=== PATIENT | female | born 1990 | race Caucasian/White ===

== ENCOUNTER 2019-04-06 08:30 | Inpatient (IN) | payer OTHER ==
[~2019-04-06] VITALS: Ht 149.9 cm; Wt 93.0 kg
[2019-04-06] MEDS ORDERED: RINGERS SOLUTION,LACTATED 1,000 ML IV PRN (09:24)
[2019-04-06] MEDS ORDERED: OXYTOCIN 30 UNITS/LACT RINGERS 500 ML IV ONE (09:24)
[2019-04-06] MEDS ORDERED: DINOPROSTONE 10 MG VAGINAL SUPPOSITORY VG ONE (09:30)
[2019-04-06] MEDS ORDERED: TERBUTALINE SULFATE 1 MG/ML VIAL SQ PRN (09:30)
[2019-04-06] MEDS ORDERED: METOCLOPRAMIDE HCL 5 MG/ML 2 ML VIAL IVP PRN (09:30)
[2019-04-06] MEDS ORDERED: CITRIC ACID/SODIUM CITRATE 30 ML SOLUTION UDCUP PO PRN (09:30)
[2019-04-06 10:01] LABS: BASOPHILS % (AUTO) 0.5 % (0.0-2.0); EOSINOPHILS % (AUTO) 0.1 % (1.0-6.0); HEMATOCRIT 39.8 % (36-46); HEMOGLOBIN 13.1 g/dL (12.0-16.0); LYMPHOCYTES # (AUTO) 1.3 K/uL (1.0-4.8); LYMPHOCYTES % (AUTO) 16.4 % (22.0-44.0); MEAN CORPUSCULAR HEMOGLOBIN 29.3 pg (26.0-34.0); MEAN CORPUSCULAR HGB CONC 32.9 G/dL (31.0-37.0); MEAN CORPUSCULAR VOLUME 89 fL (80-100); MONOCYTES # (AUTO) 0.6 K/uL (0.1-1.0); NEUTROPHILS # (AUTO) 5.8 K/uL (1.8-7.7); PLATELET COUNT (AUTO)-OB 176 K/uL (150-450); RED BLOOD CELL COUNT(AUTO) 4.47 MIL/uL (4.00-5.20); RED CELL DISTRIBUTION WIDTH 14.5 % (11.5-14.5)
[2019-04-06] MEDS: RINGERS SOLUTION,LACTATED 1,000 ML IV SCH ×3 (10:16→18:14)
[2019-04-06] MEDS ORDERED: PREN-217 PO ×2 (10:54→22:40)
[2019-04-06 11:08] VITALS: BP 107/65
[2019-04-06] MEDS: FentaNYL CITRATE-PF 100 MCG/2 ML VIAL IVP PRN ×2 (13:11→14:48)
[2019-04-06] MEDS ORDERED: ACETAMINOPHEN 500 MG TABLET PO ONE (13:30)
[2019-04-06] MEDS ORDERED: BUTORPHANOL TARTRATE 2 MG/ML VIAL IM ONE (15:30)
[2019-04-06] MEDS ORDERED: MISOPROSTOL 50 MCG TABLET VG SCH (15:30)
[2019-04-06] MEDS ORDERED: ROPIVACAINE HCL/PF 0.2% 100 ML ED ONE (16:18)
[2019-04-06] MEDS ORDERED: OXYTOCIN 30 UNITS/LACT RINGERS 500 ML IV PRN (18:55)
[2019-04-06] MEDS ORDERED: MINERAL OIL 30 ML UDCUP VG ONE (19:00)
[2019-04-06] MEDS ORDERED: OXYGEN THERAPY IH SCH (20:00)
[2019-04-06] MEDS ORDERED: METHYLERGONOVINE MALEATE 0.2 MG/ML VIAL IM PRN (20:15)
[2019-04-06] MEDS ORDERED: ROPIVACAINE HCL/PF 0.2% 100 ML ED PRN (20:51)
[2019-04-06] MEDS ORDERED: ONDANSETRON HCL 4 MG/2 ML VIAL IVP PRN (21:00)
[2019-04-06] MEDS ORDERED: DiphenhydrAMINE HCL 50 MG/ML VIAL IVP PRN (21:00)
[2019-04-06] MEDS ORDERED: NALBUPHINE HCL 10 MG/ML VIAL IVP PRN (21:00)
[2019-04-06] MEDS ORDERED: -PHARMACY NOTE- MISC ONE (21:30)
[2019-04-07] MEDS: RINGERS SOLUTION,LACTATED 1,000 ML IV SCH ×3 (02:37→22:24)
[2019-04-07] MEDS ORDERED: SODIUM CHLORIDE 0.9% 1,000 ML ONE (07:49)
[2019-04-07] MEDS ORDERED: RINGERS SOLUTION,LACTATED 1,000 ML IV ONE (07:49)
[2019-04-07] MEDS ORDERED: LIDOCAINE/PF 2% 5 ML VIAL ONE (07:49)
[2019-04-07] MEDS ORDERED: OXYTOCIN 30 UNITS/LACT RINGERS 500 ML IV ONE (07:56)
[2019-04-07] MEDS ORDERED: CYCLOBENZAPRINE HCL 10 MG TABLET PO PRN (08:00)
[2019-04-07] MEDS ORDERED: OxyCODONE HCL/ACETAMINOPHEN 5-325 MG TABLET PO PRN ×2 (08:00)
[2019-04-07] MEDS ORDERED: LANOLIN 7 GM OINTMENT TP PRN (08:00)
[2019-04-07] MEDS ORDERED: NALOXONE HCL 0.4 MG/ML VIAL IVP PRN (08:30)
[2019-04-07] MEDS ORDERED: NALBUPHINE HCL 10 MG/ML VIAL IVP PRN ×2 (08:30)
[2019-04-07] MEDS ORDERED: HYDROmorphone 2 MG/ML SYRINGE IVP PRN (08:30)
[2019-04-07] MEDS ORDERED: DiphenhydrAMINE HCL 50 MG/ML VIAL IVP PRN (08:30)
[2019-04-07] MEDS ORDERED: FentaNYL CITRATE-PF 100 MCG/2 ML VIAL IVP PRN ×2 (08:30)
[2019-04-07] MEDS ORDERED: MEPERIDINE-PF 25 MG/ML VIAL IVP PRN (08:30)
[2019-04-07] MEDS ORDERED: ONDANSETRON HCL 4 MG/2 ML VIAL IVP PRN (08:30)
[2019-04-07] MEDS ORDERED: MORPHINE SULFATE 10 MG/ML SYRINGE IVP PRN (08:30)
[2019-04-07] MEDS ORDERED: METHYLERGONOVINE MALEATE 0.2 MG/ML VIAL ONE (08:39)
[2019-04-07] MEDS ORDERED: ACETAMINOPHEN 1000 MG/ISO-OSM 100 ML IV ONE (09:05)
[2019-04-07] MEDS: ACETAMINOPHEN 1000 MG/ISO-OSM 100 ML IV SCH ×2 (09:10→17:26)
[2019-04-07] MEDS: KETOROLAC TROMETHAMINE 30 MG/ML VIAL IVP SCH ×2 (14:30→14:45)
[2019-04-07] MEDS ORDERED: OXYGEN THERAPY IH SCH ×3 (20:00)
[2019-04-07] MEDS: MAGNESIUM HYDROXIDE SUSPENSION 30 ML UDCUP PO SCH (20:16)
[2019-04-08] MEDS ORDERED: LIDOCAINE 1% 10 ML VIAL IM ONE (05:32)
[2019-04-08] MEDS ORDERED: OXYTOCIN 10 UNITS/ML VIAL IM ONE (05:32)
[2019-04-08] MEDS ORDERED: ONDANSETRON HCL 4 MG/2 ML VIAL IVP ONE (05:32)
[2019-04-08 05:33] LABS: BASOPHILS % (AUTO) 0.1 % (0.0-2.0); EOSINOPHILS % (AUTO) 0 % (1.0-6.0); HEMATOCRIT 30.9 % (36-46); HEMOGLOBIN 10.2 g/dL (12.0-16.0); LYMPHOCYTES % (AUTO) 13.5 % (22.0-44.0); MEAN CORPUSCULAR HEMOGLOBIN 29.4 pg (26.0-34.0); MEAN CORPUSCULAR HGB CONC 32.9 G/dL (31.0-37.0); MEAN CORPUSCULAR VOLUME 89 fL (80-100); MONOCYTES # (AUTO) 0.7 K/uL (0.1-1.0); MONOCYTES % (AUTO) 4.4 % (2.0-9.0); NEUTROPHILS # (AUTO) 12.3 K/uL (1.8-7.7); PLATELET COUNT (AUTO)-OB 152 K/uL (150-450); RED BLOOD CELL COUNT(AUTO) 3.46 MIL/uL (4.00-5.20); RED CELL DISTRIBUTION WIDTH 14.6 % (11.5-14.5)
[2019-04-08] MEDS: IBUPROFEN 800 MG TABLET PO PRN ×2 (06:35→19:37)
[2019-04-08] MEDS: MAGNESIUM HYDROXIDE SUSPENSION 30 ML UDCUP PO SCH ×2 (08:56→19:37)
[2019-04-08] MEDS ORDERED: DOCU-275 PO (09:15)
[2019-04-08] MEDS ORDERED: IBUP-2071 PO (09:15)
[2019-04-08] MEDS ORDERED: FERR-89 PO (09:16)
[2019-04-09] MEDS ORDERED: MORPHINE SULFATE/PF 0.5 MG/ML 10 ML AMP IVP ONE (05:13)
[2019-04-09] MEDS ORDERED: FentaNYL CITRATE-PF 100 MCG/2 ML VIAL IVP ONE (05:13)
[2019-04-09 05:34] LABS: BASOPHILS % (AUTO) 0.4 % (0.0-2.0); EOSINOPHILS % (AUTO) 0.6 % (1.0-6.0); HEMATOCRIT 30.3 % (36-46); HEMOGLOBIN 10.2 g/dL (12.0-16.0); LYMPHOCYTES # (AUTO) 2.7 K/uL (1.0-4.8); MEAN CORPUSCULAR HGB CONC 33.8 G/dL (31.0-37.0); MEAN CORPUSCULAR VOLUME 89 fL (80-100); MONOCYTES # (AUTO) 0.6 K/uL (0.1-1.0); MONOCYTES % (AUTO) 4.7 % (2.0-9.0); NEUTROPHILS # (AUTO) 9.3 K/uL (1.8-7.7); NEUTROPHILS % (AUTO) 73.3 % (40.0-70.0); PLATELET COUNT (AUTO)-OB 184 K/uL (150-450); RED BLOOD CELL COUNT(AUTO) 3.41 MIL/uL (4.00-5.20); RED CELL DISTRIBUTION WIDTH 14.5 % (11.5-14.5)
[2019-04-09] MEDS ORDERED: PERCT PO (08:50)
[2019-04-09] MEDS: MAGNESIUM HYDROXIDE SUSPENSION 30 ML UDCUP PO SCH (09:11)
[2019-04-09] MEDS: IBUPROFEN 800 MG TABLET PO PRN (11:56)
== END 2019-04-09 19:28 | disposition home or self-care (01) | DRG 788 ==
LOC: OBSVTOIN 08:30 → 4S 08:30
PROVIDERS: ADMIT Obstetrics & Gynecology; ATTEND Obstetrics & Gynecology
PROC: 10D00Z1 Extraction of Products of Conception, Low, Open Approach (ICD-10-PCS; principal; 2019-04-07)
DX: O66.5 Attempted application of vacuum extractor and forceps (principal); Z3A.39 39 weeks gestation of pregnancy; Z37.0 Single live birth
CPT/HCPCS: 86850; 86900; 86901; J0131; J0595; J0690; J1885; J2210; J2270; J2274; J2405; J2590; J2765; J2795; J3010; J3490; J7030; J7120